=== PATIENT | female | born 1975 | race Caucasian/White ===

== ENCOUNTER 2024-01-07 20:56 | Inpatient (IN) | payer OTHER, SELFPAY ==
[2024-01-07 21:00] VITALS: BP 136/83; PULSE 74; RESP 18; TEMP 36.9; O2SAT 99; BMI 19.0
--- NOTE | 2024-01-07 21:14 | CT_ITS ---
Final Report Patient: HERB SALDIVAR Facility:?[facility] Patient ID:?[id number] Site Patient ID:?[id number]. Site :?[id number] Study:?CT Abdomen/Pelvis W/ ISOVUE 370-01/07/2024 10:27:52 PM Ordering Physician:FLORENCIO Final Report: INDICATION: Abdominal pain, distention. TECHNIQUE: CT abdomen and pelvis acquired with 62 cc Isovue 370 IV contrast. COMPARISON: None. FINDINGS: Limited evaluation secondary to paucity of mesenteric fat. Lower chest: Scattered atelectasis. Liver: Unremarkable. Normal in size and attenuation. No suspicious masses. Gallbladder and bile ducts: Unremarkable. No stones or inflammation. No biliary dilatation. Pancreas: Unremarkable. No mass or inflammation. Spleen: Unremarkable. Normal in size. No masses. Adrenal glands: Unremarkable. No nodules. Kidneys: Unremarkable. No suspicious masses, stones, or hydronephrosis. GI tract: Diffuse dilated loops of small bowel with wall thickening/hyperemia with few loops of collapsed right upper quadrant small bowel. Additional short segment small bowel intussusception in the right upper quadrant (series 2/image 68-75, series 4/image 29-41), possibly transition point. Vasculature: Abdominal aorta is normal in caliber. Mesenteric arteries are patent. Lymph nodes: No lymphadenopathy. Peritoneum/Abdominal Wall: Small volume ascites. No free intraperitoneal air. Pelvis: Unremarkable. Bones: Unremarkable for age. IMPRESSION: Diffuse dilated loops of small bowel with wall thickening/hyperemia and few loops of collapsed right upper quadrant small bowel. Additionally, there is a short segment small bowel intussusception in the right upper quadrant, suspicious transition point. Differential includes small bowel obstruction with reactive enteritis versus less likely enteritis with reactive ileus. Recommend surgical consultation. Additional diffuse mesenteric edema and small volume ascites, likely reactive. Case discussed with Dr. Peralta at 10:55 p.m. on 01/07/2024. Please note that all CT scans at this facility use dose modulation, iterative reconstruction, and/or weight-based dosing when appropriate to reduce radiation dose to as low as reasonably achievable. Dictated by Adonay Esposito MD @ 01/07/2024 11:00:50 PM (Electronic Signature)
--- NOTE | 2024-01-07 21:34 | ED_ITS ---
HPI - General Adult General Date Seen: 01/07/24 Chief complaint: Constipation Stated complaint: Vomiting, chest/stomach/back pain Time Seen by Provider: 01/07/24 21:13 Source: patient Mode of arrival: ambulatory Limitations: no limitations History of Present Illness HPI narrative: Patient is a 48-year-old woman who is generally healthy. She says that she does have some chronic problems with constipation, she does not take anything for it just does not have a bowel movement every day. She was in [place] over the weekend for a daughter's volleyball tournament, and she says she noted over the weekend that she did not poop at all. This is not entirely uncommon for her, but since yesterday she has developed pain in her abdomen fairly diffusely as well as radiating into her back. She feels her abdomen is quite distended and now she is having nausea and is unable to keep liquids down. She rates pain as moderate to severe in intensity. She has had a couple of small bowel movements today. She has not had fevers or chills. She has not had urinary symptoms. She has no history of prior abdominal surgeries. Related Data Home Medications Medication Instructions Recorded Confirmed multivitamin with iron 1 tab PO DAILY 01/07/24 01/08/24 Allergies Allergy/AdvReac Type Severity Reaction Status Date / Time No Known Drug Allergies Allergy Verified 01/07/24 21:04 Review of Systems Status of ROS: Reports: 10 or more systems reviewed and unremarkable except as noted in History and below PFSH PFS Social History What is your current living situation?: I presently have a place to live Problems where you live: no known problems Problems where you live details: N/A In the past 12 months, utilities in danger of being shut off: no In past 12 months, lack of transportation kept you from medical appts, meetings, work, or getting things needed for daily living: no In the past 12 mos, have been you worried that your food would run out before you had money to buy more?: never true In the past 12 mos, the food you bought just didn't last and you didn't have money to buy more?: never true Highest level of school completed/degree received: Bachelor's degree Smoking Status: Never smoker Do you use any of these nicotine containing products: None Second hand tobacco smoke exposure: No How often do you have a drink containing alcohol: never How often do you have six or more drinks on one occasion: Never AUDIT-C Alcohol total score: 0 Non-prescribed substance use: denies use Caffeine: Yes How often does anyone, including family, friends and others, physically hurt you : never How often does anyone, including family, friends and others, insult or talk down to you: never How often does anyone, including family, friends and others, threaten you with harm: never How often does anyone, including family, friends and others, scream or curse at you: never service: No Exam Narrative: Exam Narrative: Vital signs as noted above. In general, an alert, well-appearing patient. Head: Normocephalic, atraumatic. Eyes: Pupils are equal reactive. Extraocular movements are full. Conjunctivae are normal. ENT: Mucous membranes are moist. Neck: Supple without lymphadenopathy. Heart: Regular rate and rhythm. No murmur or rub. Lungs: Clear bilaterally. No increased work of breathing, crackles or wheezes. Abdomen: Mildly distended but soft. Diffuse tenderness to palpation with some voluntary guarding. Bowel sounds are quiet. Extremities: Well perfused. No edema. No calf tenderness. Pulses intact. Neurologic: Patient is alert and oriented to person and place. Speech is fluen t. Face is symmetric. Moves all extremities equally. Affect: Normal. Skin: Warm and dry. Well perfused. Const: Vital Signs, click to edit/add: Vital Signs - 24 hr 01/07/24 21:00 Temperature 98.4 F Pulse Rate [Pulse Oximeter] 74 Respiratory Rate 18 Blood Pressure [Ri ght Upper Arm] 136/83 Pulse Oximetry 99 Oxygen Delivery Me thod Room Air Documenting provider has reviewed patient's vital signs: yes Course Course ED Course: Diagnostic considerations include constipation, obstruction, volvulus, diverticulitis, pancreatitis, gastritis among others. Discussed with her that while symptoms certainly could be related to constipation, given degree of pain and tenderness I do think we should rule out other potential causes. Will establish an IV, give a L of saline as she says she has not been able to really keep anything down today. She declines need for anything for pain at the moment but would like something for nausea, Zofran 4 mg IV prescribed. Nausea improved with Zofran. She did ask for something ?easy on her stomach for pain. She has had problems with vomiting with narcotics in the past. I gave her 15 mg of Toradol. Her CT scan of the abdomen by my review showed the small bowel to be entirely dilated and fluid-filled. I did not see any free air, she has some free fluid on the periphery of the abdomen diffusely. I spoke with the radiologist, final read as follows:FINDINGS: Limited evaluation secondary to paucity of mesenteric fat. Lower chest: Scattered atelectasis. Liver: Unremarkable. Normal in size and attenuation. No suspicious masses. Gallbladder and bile ducts: Unremarkable. No stones or inflammation. No biliary dilatation. Pancreas: Unremarkable. No mass or inflammation. Spleen: Unremarkable. Normal in size. No masses. Adrenal glands: Unremarkable. No nodules. Kidneys: Unremarkable. No suspicious masses, stones, or hydronephrosis. GI tract: Diffuse dilated loops of small bowel with wall thickening/hyperemia with few loops of collapsed right upper quadrant small bowel. Additional short segment small bowel intussusception in the right upper quadrant (series 2/image [id number], series 4/image [id number]), possibly transition point. Vasculature: Abdominal aorta is normal in caliber. Mesenteric arteries are patent. Lymph nodes: No lymphadenopathy. Peritoneum/Abdominal Wall: Small volume ascites. No free intraperitoneal air. Pelvis: Unremarkable. Bones: Unremarkable for age. IMPRESSION: Diffuse dilated loops of small bowel with wall thickening/hyperemia and few loops of collapsed right upper quadrant small bowel. Additionally, there is a short segment small bowel intussusception in the right upper quadrant, suspicious transition point. Differential includes small bowel obstruction with reactive enteritis versus less likely enteritis with reactive ileus. Recommend surgical consultation. Additional diffuse mesenteric edema and small volume ascites, likely reactive. Labs are fairly reassuring. Her white count is normal, lactate is 1.1. Metabolic panel shows a sodium of 130 but is otherwise normal, total bilirubin is very minimally elevated 1.6 other LFTs are normal. CRP is less than 0.5. Urinalysis showed 1+ ketones, 0-2 red cells 0-2 white cells. test was negative. I reviewed her case with Dr. Horne, who is on-call for General surgery. She reviewed the CT scan as well. Her recommendation is that we treat this as a small bowel obstruction for now with NG tube, NPO status and IV fluids. She will assess her 1st thing tomorrow morning and failing to improve for worsening surgical exploration at that time. For now, exam remains the same, she is not showing any peritoneal signs, she is afebrile and hemodynamically stable. She is comfortable with the plan. Vital Signs Vital signs: Initial Vital Signs Temperature 98.4 F 01/07/24 21:00 Temperature Source Temporal Artery Scan 01/07/24 21:00 Pulse Rate 74 01/07/24 21:00 Respiratory Rate 18 01/07/24 21:00 Blood Pressure 136/83 01/07/24 21:00 Blood Pressure Mean 100 01/07/24 21:00 Blood Pressure Position Sitting 01/07/24 21:00 Pulse Oximetry 99 01/07/24 21:00 Oxygen Delivery Method Room Air 01/07/24 21:00 Vital Signs Temperature 98.4 F 01/07/24 21:00 Pulse Rate 74 01/07/24 21:00 Respiratory Rate 18 01/07/24 21:00 Blood Pressure 136/83 01/07/24 21:00 Pulse Oximetry 99 01/07/24 21:00 Oxygen Delivery Method Room Air 01/07/24 21:00 Temperature 98.3 F 01/09/24 15:00 Pulse Rate 76 01/09/24 15:00 Respiratory Rate 16 01/09/24 15:00 Blood Pressure 105/82 01/09/24 15:00 Pulse Oximetry 100 01/09/24 15:00 Oxygen Delivery Method Room Air 01/09/24 15:00 Medications Administered Medications: Generic Name Dose Route Start Last Admin Trade Name Jrq PRN Reason Stop Dose Admin Acetaminophen 650 mg 01/08/24 12:12 01/09/24 14:51 Acetaminophen 325 Mg Tablet PO 650 mg Q6H PRN Administration Lactated Ringer's 1,000 mls @ 100 mls/hr 01/07/24 23:57 01/09/24 16:02 Lactated Ringers 1000 Ml IV 100 mls/hr .Q10H LIYZ Administration Ketorolac Tromethamine 15 mg 01/08/24 12:12 01/09/24 16:01 Ketorolac 15 Mg/Ml Inj IVP 15 mg Q6H PRN Administration Ondansetron HCl 4 - 8 mg 01/07/24 23:57 01/08/24 08:19 Ondansetron 2 Mg/Ml Inj IVP 4 mg Q8H PRN Administration Nausea And Vomiting Phenol 1 spray 01/08/24 00:57 01/08/24 08:19 Phenol 1.4 % Throat [place] MUCOUS MEM 1 spray Q2H PRN Administration Discontinued Medications Generic Name Dose Route Start Last Admin Trade Name Freq PRN Reason Stop Dose Admin Acetaminophen 1,000 mg 01/08/24 08:49 01/08/24 09:35 Acetaminophen 500 Mg Tablet PO 01/08/24 08:50 1,000 mg ONCE ONE Administration Benzocaine 1 each 01/08/24 00:04 01/08/24 00:27 Benzocaine 20 % [place] NOSTRIL-B 01/08/24 00:05 1 each ONCE ONE Administration Cefazolin Sodium 1 gm 01/08/24 09:17 01/08/24 09:35 Cefazolin 1 Gm Inj IVP 01/08/24 09:18 1 gm ONCE ONE Administration Gabapentin 600 mg 01/08/24 08:49 01/08/24 09:35 Gabapentin 600 Mg Tablet PO 01/08/24 08:50 600 mg ONCE ONE Administration Hydroxyzine Pamoate 25 mg 01/08/24 09:21 01/08/24 09:35 Hydroxyzine Pamoate 25 Mg Capsule PO 01/08/24 09:22 25 mg ONCE ONE Administration Sodium Chloride 1,000 mls @ 1,000 mls/hr 01/07/24 21:15 01/08/24 00:18 0.9 % Sodium Chloride 1000 Ml IV 01/07/24 22:14 Infused .Q1H LIZY Infusion Lactated Ringer's 1,000 mls @ 100 mls/hr 01/08/24 09:25 01/09/24 16:34 Lactated Ringers 1000 Ml IV Not Given .Q10H LIZY Ketorolac Tromethamine 15 mg 01/07/24 22:01 01/07/24 22:08 Ketorolac 15 Mg/Ml Inj IVP 01/07/24 22:02 15 mg ONCE ONE Administration Ketorolac Tromethamine 15 mg 01/08/24 08:32 01/09/24 04:19 Ketorolac 15 Mg/Ml Inj IVP 15 mg Q6H PRN Administration Meperidine HCl 12.5 mg 01/08/24 09:21 01/08/24 11:49 Meperidine 25 Mg/Ml Inj IVP 12.5 mg ONCE PRN Administration Shivering Ondansetron HCl 4 mg 01/07/24 21:14 01/07/24 22:08 Ondansetron 2 Mg/Ml Inj IVP 01/07/24 21:15 4 mg ONCE ONE Administration Scopolamine 1 patch 01/08/24 08:49 01/08/24 09:36 Scopolamine 1 Mg/3 Day Patch TRANSDERMA 01/08/24 08:50 1 patch ONCE ONE Administration Medical Decision Making Lab Data Labs: Lab Results 01/07/24 01/07/24 01/07/24 Range/Units 21:57 22:00 22:00 WBC 9.11 (4.50-11.00) K/uL RBC 4.37 (4.00-5.20) m/uL Hgb 14.5 (12.0-16.0) gm/dL Hct 42.7 (33.0-51.0) % MCV 98 (80-100) fL MCH 33 (26-34) pg MCHC 34 (32-36) gm/dL RDW Coeff of Jenniffer 11.8 (11.5-15.5) % Plt Count 246 (140-440) K/uL Neut % (Auto) 85.2 H (42.0-72.0) % Lymph % (Auto) 8.3 L (20-44) % [place] % (Auto) 5.5 (0.0-11.0) % Eos % (Auto) 0.1 (0.0-7.0) % Baso % (Auto) 0.1 (0.0-3.0) % Neut # (Auto) 7.80 H (1.7-7.0) K/uL Lymph # (Auto) 0.80 L (0.90-2.90) K/uL [place] # (Auto) 0.50 (0.00-0.90) K/UL Eos # (Auto) 0.01 (0.00-0.50) K/uL Baso # (Auto) 0.01 (0.00-0.30) K/uL Abs Immat Gran (auto) 0.07 (0.00-0.30) K/uL Imm/Tot Granulo (auto) 0.8 % Sodium 130 L (135-149) mmol/L Potassium 4.2 (3.6-5.1) mmol/L Chloride 96 (96-114) mmol/L Carbon Dioxide 22 (20-32) mmol/L Anion Gap 12 (7-15) mEq/L BUN 14 (5-24) mg/dL Creatinine 0.7 (0.5-1.5) mg/dL Estimated Creat Clear 88.93 Estimated GFR 107 ml/min Glucose 110 (60-115) mg/dL Lactate 1.1 (0.5-1.9) mmol/L Calcium 9.6 (8.4-10.6) mg/dL Total Bilirubin 1.6 H (0.1-1.5) mg/dL Direct Bilirubin 0.3 (0.0-0.5) mg/dL AST 32 (12-35) U/L ALT 17 (4-35) U/L Alkaline Phosphatase 64 (40-150) U/L C-Reactive Protein < 0.5 L (0.5-1.0) mg/dL Total Protein 8.9 H (6.0-8.3) g/dL Albumin 5.2 H (3.3-5.0) g/dL Lipase 41 (23-300) U/L Urine Color Yellow Cancelled (Yellow) Urine Appearance Clear (Clear) Urine pH (5.0-8.5) Ur Specific [place] (1.000-1.030) Urine Protein (Negative) Urine Glucose (UA) (Negative) Urine Ketones (Negative) Urine Blood (Negative) Urine Nitrite (Negative) Urine Bilirubin (Negative) Urine Urobilinogen (0.2-1.0) Ur Leukocyte Esterase (Negative) Urine RBC (0-2) Urine WBC (0-5) Urine WBC Clumps Ur Squamous Epith Cells (None-Few) James Biurate Crystals Calcium Carbonate Cryst Calcium Phosphate Cryst Calcium Oxalate Crystal Cystine Crystals Uric Acid Crystals Triple Phos Crystals Sulfur Crystals Cholesterol Crystals Tyrosine Crystals Hippuric Acid Crystals Amorphous Sediment (None) Other Sediment Urine Bacteria (None) Fatty Casts Hyaline Casts Fine Granular Casts Coarse Granular Casts Waxy Casts RBC Casts WBC Casts Other Casts Urine Starch Urine Mucus Urine Trichomonas Urine Yeast Urine HCG, Qual (Negative) 01/07/24 01/07/24 01/07/24 Range/Units 22:00 22:00 22:00 WBC (4.50-11.00) K/uL RBC (4.00-5.20) m/uL Hgb (12.0-16.0) gm/dL Hct (33.0-51.0) % MCV (80-100) fL MCH (26-34) pg MCHC (32-36) gm/dL RDW Coeff of Jenniffer (11.5-15.5) % Plt Count (140-440) K/uL Neut % (Auto) (42.0-72.0) % Lymph % (Auto) (20-44) % [place] % (Auto) (0.0-11.0) % Eos % (Auto) (0.0-7.0) % Baso % (Auto) (0.0-3.0) % Neut # (Auto) (1.7-7.0) K/uL Lymph # (Auto) (0.90-2.90) K/uL [place] # (Auto) (0.00-0.90) K/UL Eos # (Auto) (0.00-0.50) K/uL Baso # (Auto) (0.00-0.30) K/uL Abs Immat Gran (auto) (0.00-0.30) K/uL Imm/Tot Granulo (auto) % Sodium (135-149) mmol/L Potassium (3.6-5.1) mmol/L Chloride (96-114) mmol/L Carbon Dioxide (20-32) mmol/L Anion Gap (7-15) mEq/L BUN (5-24) mg/dL Creatinine (0.5-1.5) mg/dL Estimated Creat Clear Estimated GFR ml/min Glucose (60-115) mg/dL Lactate (0.5-1.9) mmol/L Calcium (8.4-10.6) mg/dL Total Bilirubin (0.1-1.5) mg/dL Direct Bilirubin (0.0-0.5) mg/dL AST (12-35) U/L ALT (4-35) U/L Alkaline Phosphatase (40-150) U/L C-Reactive Protein (0.5-1.0) mg/dL Total Protein (6.0-8.3) g/dL Albumin (3.3-5.0) g/dL Lipase (23-300) U/L Urine Color (Yellow) Urine Appearance Cancelled (Clear) Urine pH 6.0 Cancelled (5.0-8.5) Ur Specific [place] >= 1.030 Cancelled (1.000-1.030) Urine Protein Negative (Negative) Urine Glucose (UA) (Negative) Urine Ketones (Negative) Urine Blood (Negative) Urine Nitrite (Negative) Urine Bilirubin (Negative) Urine Urobilinogen (0.2-1.0) Ur Leukocyte Esterase (Negative) Urine RBC (0-2) Urine WBC (0-5) Urine WBC Clumps Ur Squamous Epith Cells (None-Few) James Biurate Crystals Calcium Carbonate Cryst Calcium Phosphate Cryst Calcium Oxalate Crystal Cystine Crystals Uric Acid Crystals Triple Phos Crystals Sulfur Crystals Cholesterol Crystals Tyrosine Crystals Hippuric Acid Crystals Amorphous Sediment (None) Other Sediment Urine Bacteria (None) Fatty Casts Hyaline Casts Fine Granular Casts Coarse Granular Casts Waxy Casts RBC Casts WBC Casts Other Casts Urine Starch Urine Mucus Urine Trichomonas Urine Yeast Urine HCG, Qual (Negative) 01/07/24 01/07/24 01/07/24 Range/Units 22:00 22:00 22:00 WBC (4.50-11.00) K/uL RBC (4.00-5.20) m/uL Hgb (12.0-16.0) gm/dL Hct (33.0-51.0) % MCV (80-100) fL MCH (26-34) pg MCHC (32-36) gm/dL RDW Coeff of Jenniffer (11.5-15.5) % Plt Count (140-440) K/uL Neut % (Auto) (42.0-72.0) % Lymph % (Auto) (20-44) % [place] % (Auto) (0.0-11.0) % Eos % (Auto) (0.0-7.0) % Baso % (Auto) (0.0-3.0) % Neut # (Auto) (1.7-7.0) K/uL Lymph # (Auto) (0.90-2.90) K/uL [place] # (Auto) (0.00-0.90) K/UL Eos # (Auto) (0.00-0.50) K/uL Baso # (Auto) (0.00-0.30) K/uL Abs Immat Gran (auto) (0.00-0.30) K/uL Imm/Tot Granulo (auto) % Sodium (135-149) mmol/L Potassium (3.6-5.1) mmol/L Chloride (96-114) mmol/L Carbon Dioxide (20-32) mmol/L Anion Gap (7-15) mEq/L BUN (5-24) mg/dL Creatinine (0.5-1.5) mg/dL Estimated Creat Clear Estimated GFR ml/min Glucose (60-115) mg/dL Lactate (0.5-1.9) mmol/L Calcium (8.4-10.6) mg/dL Total Bilirubin (0.1-1.5) mg/dL Direct Bilirubin (0.0-0.5) mg/dL AST (12-35) U/L ALT (4-35) U/L Alkaline Phosphatase (40-150) U/L C-Reactive Protein (0.5-1.0) mg/dL Total Protein (6.0-8.3) g/dL Albumin (3.3-5.0) g/dL Lipase (23-300) U/L Urine Color (Yellow) Urine Appearance (Clear) Urine pH (5.0-8.5) Ur Specific [place] (1.000-1.030) Urine Protein Cancelled (Negative) Urine Glucose (UA) Negative Cancelled (Negative) Urine Ketones 1+ A Cancelled (Negative) Urine Blood Trace-intact A (Negative) Urine Nitrite (Negative) Urine Bilirubin (Negative) Urine Urobilinogen (0.2-1.0) Ur Leukocyte Esterase (Negative) Urine RBC (0-2) Urine WBC (0-5) Urine WBC Clumps Ur Squamous Epith Cells (None-Few) James Biurate Crystals Calcium Carbonate Cryst Calcium Phosphate Cryst Calcium Oxalate Crystal Cystine Crystals Uric Acid Crystals Triple Phos Crystals Sulfur Crystals Cholesterol Crystals Tyrosine Crystals Hippuric Acid Crystals Amorphous Sediment (None) Other Sediment Urine Bacteria (None) Fatty Casts Hyaline Casts Fine Granular Casts Coarse Granular Casts Waxy Casts RBC Casts WBC Casts Other Casts Urine Starch Urine Mucus Urine Trichomonas Urine Yeast Urine HCG, Qual (Negative) 01/07/24 01/07/24 01/07/24 Range/Units 22:00 22:00 22:00 WBC (4.50-11.00) K/uL RBC (4.00-5.20) m/uL Hgb (12.0-16.0) gm/dL Hct (33.0-51.0) % MCV (80-100) fL MCH (26-34) pg MCHC (32-36) gm/dL RDW Coeff of Jenniffer (11.5-15.5) % Plt Count (140-440) K/uL Neut % (Auto) (42.0-72.0) % Lymph % (Auto) (20-44) % [place] % (Auto) (0.0-11.0) % Eos % (Auto) (0.0-7.0) % Baso % (Auto) (0.0-3.0) % Neut # (Auto) (1.7-7.0) K/uL Lymph # (Auto) (0.90-2.90) K/uL [place] # (Auto) (0.00-0.90) K/UL Eos # (Auto) (0.00-0.50) K/uL Baso # (Auto) (0.00-0.30) K/uL Abs Immat Gran (auto) (0.00-0.30) K/uL Imm/Tot Granulo (auto) % Sodium (135-149) mmol/L Potassium (3.6-5.1) mmol/L Chloride (96-114) mmol/L Carbon Dioxide (20-32) mmol/L Anion Gap (7-15) mEq/L BUN (5-24) mg/dL Creatinine (0.5-1.5) mg/dL Estimated Creat Clear Estimated GFR ml/min Glucose (60-115) mg/dL Lactate (0.5-1.9) mmol/L Calcium (8.4-10.6) mg/dL Total Bilirubin (0.1-1.5) mg/dL Direct Bilirubin (0.0-0.5) mg/dL AST (12-35) U/L ALT (4-35) U/L Alkaline Phosphatase (40-150) U/L C-Reactive Protein (0.5-1.0) mg/dL Total Protein (6.0-8.3) g/dL Albumin (3.3-5.0) g/dL Lipase (23-300) U/L Urine Color (Yellow) Urine Appearance (Clear) Urine pH (5.0-8.5) Ur Specific [place] (1.000-1.030) Urine Protein (Negative) Urine Glucose (UA) (Negative) Urine Ketones (Negative) Urine Blood Cancelled (Negative) Urine Nitrite Negative Cancelled (Negative) Urine Bilirubin Negative Cancelled (Negative) Urine Urobilinogen 0.2 (0.2-1.0) Ur Leukocyte Esterase (Negative) Urine RBC (0-2) Urine WBC (0-5) Urine WBC Clumps Ur Squamous Epith Cells (None-Few) [place] Biurate Crystals Calcium Carbonate Cryst Calcium Phosphate Cryst Calcium Oxalate Crystal Cystine Crystals Uric Acid Crystals Triple Phos Crystals Sulfur Crystals Cholesterol Crystals Tyrosine Crystals Hippuric Acid Crystals Amorphous Sediment (None) Other Sediment Urine Bacteria (None) Fatty Casts Hyaline Casts Fine Granular Casts Coarse Granular Casts Waxy Casts RBC Casts WBC Casts Other Casts Urine Starch Urine Mucus Urine Trichomonas Urine Yeast Urine HCG, Qual (Negative) 01/07/24 01/07/24 01/07/24 Range/Units 22:00 22:00 22:00 WBC (4.50-11.00) K/uL RBC (4.00-5.20) m/uL Hgb (12.0-16.0) gm/dL Hct (33.0-51.0) % MCV (80-100) fL MCH (26-34) pg MCHC (32-36) gm/dL RDW Coeff of Jenniffer (11.5-15.5) % Plt Count (140-440) K/uL Neut % (Auto) (42.0-72.0) % Lymph % (Auto) (20-44) % [place] % (Auto) (0.0-11.0) % Eos % (Auto) (0.0-7.0) % Baso % (Auto) (0.0-3.0) % Neut # (Auto) (1.7-7.0) K/uL Lymph # (Auto) (0.90-2.90) K/uL [place] # (Auto) (0.00-0.90) K/UL Eos # (Auto) (0.00-0.50) K/uL Baso # (Auto) (0.00-0.30) K/uL Abs Immat Gran (auto) (0.00-0.30) K/uL Imm/Tot Granulo (auto) % Sodium (135-149) mmol/L Potassium (3.6-5.1) mmol/L Chloride (96-114) mmol/L Carbon Dioxide (20-32) mmol/L Anion Gap (7-15) mEq/L BUN (5-24) mg/dL Creatinine (0.5-1.5) mg/dL Estimated Creat Clear Estimated GFR ml/min Glucose (60-115) mg/dL Lactate (0.5-1.9) mmol/L Calcium (8.4-10.6) mg/dL Total Bilirubin (0.1-1.5) mg/dL Direct Bilirubin (0.0-0.5) mg/dL AST (12-35) U/L ALT (4-35) U/L Alkaline Phosphatase (40-150) U/L C-Reactive Protein (0.5-1.0) mg/dL Total Protein (6.0-8.3) g/dL Albumin (3.3-5.0) g/dL Lipase (23-300) U/L Urine Color (Yellow) Urine Appearance (Clear) Urine pH (5.0-8.5) Ur Specific [place] (1.000-1.030) Urine Protein (Negative) Urine Glucose (UA) (Negative) Urine Ketones (Negative) Urine Blood (Negative) Urine Nitrite (Negative) Urine Bilirubin (Negative) Urine Urobilinogen Cancelled (0.2-1.0) Ur Leukocyte Esterase Negative Cancelled (Negative) Urine RBC 0-2 Cancelled (0-2) Urine WBC 0-2 (0-5) Urine WBC Clumps Ur Squamous Epith Cells (None-Few) [place] Biurate Crystals Calcium Carbonate Cryst Calcium Phosphate Cryst Calcium Oxalate Crystal Cystine Crystals Uric Acid Crystals Triple Phos Crystals Sulfur Crystals Cholesterol Crystals Tyrosine Crystals Hippuric Acid Crystals Amorphous Sediment (None) Other Sediment Urine Bacteria (None) Fatty Casts Hyaline Casts Fine Granular Casts Coarse Granular Casts Waxy Casts RBC Casts WBC Casts Other Casts Urine Starch Urine Mucus Urine Trichomonas Urine Yeast Urine HCG, Qual (Negative) 01/07/24 01/07/24 01/07/24 Range/Units 22:00 22:00 22:00 WBC (4.50-11.00) K/uL RBC (4.00-5.20) m/uL Hgb (12.0-16.0) gm/dL Hct (33.0-51.0) % MCV (80-100) fL MCH (26-34) pg MCHC (32-36) gm/dL RDW Coeff of Jenniffer (11.5-15.5) % Plt Count (140-440) K/uL Neut % (Auto) (42.0-72.0) % Lymph % (Auto) (20-44) % [place] % (Auto) (0.0-11.0) % Eos % (Auto) (0.0-7.0) % Baso % (Auto) (0.0-3.0) % Neut # (Auto) (1.7-7.0) K/uL Lymph # (Auto) (0.90-2.90) K/uL [place] # (Auto) (0.00-0.90) K/UL Eos # (Auto) (0.00-0.50) K/uL Baso # (Auto) (0.00-0.30) K/uL Abs Immat Gran (auto) (0.00-0.30) K/uL Imm/Tot Granulo (auto) % Sodium (135-149) mmol/L Potassium (3.6-5.1) mmol/L Chloride (96-114) mmol/L Carbon Dioxide (20-32) mmol/L Anion Gap (7-15) mEq/L BUN (5-24) mg/dL Creatinine (0.5-1.5) mg/dL Estimated Creat Clear Estimated GFR ml/min Glucose (60-115) mg/dL Lactate (0.5-1.9) mmol/L Calcium (8.4-10.6) mg/dL Total Bilirubin (0.1-1.5) mg/dL Direct Bilirubin (0.0-0.5) mg/dL AST (12-35) U/L ALT (4-35) U/L Alkaline Phosphatase (40-150) U/L C-Reactive Protein (0.5-1.0) mg/dL Total Protein (6.0-8.3) g/dL Albumin (3.3-5.0) g/dL Lipase (23-300) U/L Urine Color (Yellow) Urine Appearance (Clear) Urine pH (5.0-8.5) Ur Specific [place] (1.000-1.030) Urine Protein (Negative) Urine Glucose (UA) (Negative) Urine Ketones (Negative) Urine Blood (Negative) Urine Nitrite (Negative) Urine Bilirubin (Negative) Urine Urobilinogen (0.2-1.0) Ur Leukocyte Esterase (Negative) Urine RBC (0-2) Urine WBC Cancelled (0-5) Urine WBC Clumps Cancelled Ur Squamous Epith Cells Few Cancelled (None-Few) [place] Biurate Crystals Cancelled Calcium Carbonate Cryst Cancelled Calcium Phosphate Cryst Cancelled Calcium Oxalate Crystal Cancelled Cystine Crystals Cancelled Uric Acid Crystals Cancelled Triple Phos Crystals Cancelled Sulfur Crystals Cancelled Cholesterol Crystals Cancelled Tyrosine Crystals Cancelled Hippuric Acid Crystals Cancelled Amorphous Sediment Few A Cancelled (None) Other Sediment Cancelled Urine Bacteria Few A (None) Fatty Casts Hyaline Casts Fine Granular Casts Coarse Granular Casts Waxy Casts RBC Casts WBC Casts Other Casts Urine Starch Urine Mucus Urine Trichomonas Urine Yeast Urine HCG, Qual (Negative) 01/07/24 01/08/24 Range/Units 22:00 06:14 WBC 6.07 (4.50-11.00) K/uL RBC 3.49 L (4.00-5.20) m/uL Hgb 11.6 L (12.0-16.0) gm/dL Hct 33.9 (33.0-51.0) % MCV 97 (80-100) fL MCH 33 (26-34) pg MCHC 34 (32-36) gm/dL RDW Coeff of Jenniffer 11.8 (11.5-15.5) % Plt Count 201 (140-440) K/uL Neut % (Auto) 71.3 (42.0-72.0) % Lymph % (Auto) 19.8 L (20-44) % [place] % (Auto) 7.6 (0.0-11.0) % Eos % (Auto) 1.0 (0.0-7.0) % Baso % (Auto) 0.3 (0.0-3.0) % Neut # (Auto) 4.33 (1.7-7.0) K/uL Lymph # (Auto) 1.20 (0.90-2.90) K/uL [place] # (Auto) 0.50 (0.00-0.90) K/UL Eos # (Auto) 0.06 (0.00-0.50) K/uL Baso # (Auto) 0.02 (0.00-0.30) K/uL Abs Immat Gran (auto) 0.00 (0.00-0.30) K/uL Imm/Tot Granulo (auto) 0.0 % Sodium 133 L (135-149) mmol/L Potassium 3.6 (3.6-5.1) mmol/L Chloride 102 (96-114) mmol/L Carbon Dioxide 25 (20-32) mmol/L Anion Gap 6 L (7-15) mEq/L BUN 12 (5-24) mg/dL Creatinine 0.7 (0.5-1.5) mg/dL Estimated Creat Clear 89.29 Estimated GFR 107 ml/min Glucose 92 (60-115) mg/dL Lactate (0.5-1.9) mmol/L Calcium 8.7 (8.4-10.6) mg/dL Total Bilirubin (0.1-1.5) mg/dL Direct Bilirubin (0.0-0.5) mg/dL AST (12-35) U/L ALT (4-35) U/L Alkaline Phosphatase (40-150) U/L C-Reactive Protein (0.5-1.0) mg/dL Total Protein (6.0-8.3) g/dL Albumin (3.3-5.0) g/dL Lipase (23-300) U/L Urine Color (Yellow) Urine Appearance (Clear) Urine pH (5.0-8.5) Ur Specific [place] (1.000-1.030) Urine Protein (Negative) Urine Glucose (UA) (Negative) Urine Ketones (Negative) Urine Blood (Negative) Urine Nitrite (Negative) Urine Bilirubin (Negative) Urine Urobilinogen (0.2-1.0) Ur Leukocyte Esterase (Negative) Urine RBC (0-2) Urine WBC (0-5) Urine WBC Clumps Ur Squamous Epith Cells (None-Few) James Biurate Crystals Calcium Carbonate Cryst Calcium Phosphate Cryst Calcium Oxalate Crystal Cystine Crystals Uric Acid Crystals Triple Phos Crystals Sulfur Crystals Cholesterol Crystals Tyrosine Crystals Hippuric Acid Crystals Amorphous Sediment (None) Other Sediment Urine Bacteria Cancelled (None) Fatty Casts Cancelled Hyaline Casts Cancelled Fine Granular Casts Cancelled Coarse Granular Casts Cancelled Waxy Casts Cancelled RBC Casts Cancelled WBC Casts Cancelled Other Casts Cancelled Urine Starch Cancelled Urine Mucus Cancelled Urine Trichomonas Cancelled Urine Yeast Cancelled Urine HCG, Qual Negative (Negative) Discharge Plan Discharge Patient Disposition: Admitted As Observation
[2024-01-07] MEDS: 0.9 % SODIUM CHLORIDE 1000 ml 1,000 ML IV (21:57)
[2024-01-07] MEDS: KETOROLAC 15 MG/ML inj IVP (22:08)
[2024-01-07] MEDS: ONDANSETRON 2 MG/ML inj 4 MG IVP (22:08)
[2024-01-07 22:25] LABS: Appearance Urine Clear (Clear); Bilirubin Urine Negative (Negative); Blood Urine Trace-intact (Negative); Color Urine Yellow (Yellow); Glucose Urine Negative (Negative); Ketones Urine 1+ (Negative); Leukocyte Esterase Urine Negative (Negative); Nitrite Urine Negative (Negative); Protein Urine Negative (Negative); Specific Gravity Urine >= 1.030 (1.000-1.030); Urobilinogen Urine 0.2 (0.2-1.0)
[2024-01-07 22:26] LABS: Lactate* 1.1 mmol/L (0.5-1.9)
[2024-01-07 22:43] LABS: Albumin* 5.2 g/dL (3.3-5.0); Chloride* 96 mmol/L (96-114)
[2024-01-07 22:44] LABS: Potassium* 4.2 mmol/L (3.6-5.1); Sodium* 130 mmol/L (135-149)
[2024-01-07 22:46] LABS: Creatinine* 0.7 mg/dL (0.5-1.5); Est. Creatinine Clearance* 88.93; Estimated Glomerular Filt Rate 107 ml/min
[2024-01-07 22:47] LABS: Alanine Aminotransferase* 17 U/L (4-35); Alkaline Phosphatase* 64 U/L (40-150); Anion Gap 12 mEq/L (7-15); Aspartate Amino Transferase* 32 U/L (12-35); Bilirubin Direct* 0.3 mg/dL (0.0-0.5); Bilirubin Total* 1.6 mg/dL (0.1-1.5); Blood Urea Nitrogen* 14 mg/dL (5-24); Calcium* 9.6 mg/dL (8.4-10.6); Carbon Dioxide* 22 mmol/L (20-32); Glucose* 110 mg/dL (60-115); Lipase* 41 U/L (23-300); Total Protein* 8.9 g/dL (6.0-8.3)
[2024-01-07 22:48] LABS: RBC Urine 0-2 (0-2); WBC Urine 0-2 (0-5)
[2024-01-07 22:49] LABS: Amorphous Sediment Urine Few; Bacteria Urine Few; Squamous Epithelial Cell Urine Few (None-Few); Ur HCG Qualitative* Negative (Negative)
[2024-01-07 22:57] LABS: Basophils Absolute Auto 0.01 K/uL (0.00-0.30); Basophils Percent Auto 0.1 % (0.0-3.0); C Reactive Protein* < 0.5 mg/dL (0.5-1.0); Eosinophils Absolute Auto 0.01 K/uL (0.00-0.50); Eosinophils Percent Auto 0.1 % (0.0-7.0); Hematocrit 42.7 % (33.0-51.0); Hemoglobin* 14.5 gm/dL (12.0-16.0); Immature Granulocytes Abs Auto 0.07 K/uL (0.00-0.30); Immature Granulocytes Pct Auto 0.8 %; Lymphocytes Percent Auto 8.3 % (20-44); Mean Corpuscular HGB Conc 34 gm/dL (32-36); Mean Corpuscular Hemoglobin 33 pg (26-34); Mean Corpuscular Volume 98 fL (80-100); Monocytes Percent Auto 5.5 % (0.0-11.0); Neutrophils Percent Auto 85.2 % (42.0-72.0); Platelet Count* 246 K/uL (140-440); RDW Coefficient of Variation % 11.8 % (11.5-15.5); Red Blood Count 4.37 m/uL (4.00-5.20); White Blood Count* 9.11 K/uL (4.50-11.00)
[2024-01-07 22:58] LABS: Slide Review Reflex No
[2024-01-08] VITALS (22 sets, daily range): BP systolic 92–139; BP diastolic 49–90; PULSE 63–114; RESP 14–18; TEMP 36.2–37.6; O2SAT 96–100; BMI 19.1
--- NOTE | 2024-01-08 00:08 | XR_ITS ---
Final Report Patient: HERB SALDIVAR Facility:?[facility] Patient ID:?[id number] Site Patient ID:?[id number]. Site :?[id number] Study:?XRay Abdomen 1V-01/08/2024 12:32:47 AM Ordering Physician:FLORENCIO Final Report: Indication: NG tube placement Technique: Single view of the abdomen Comparison: Prior day CT abdomen and pelvis Findings: Dilated loops of small bowel again noted, not well evaluated on this examination. Enteric tube terminates in the left lower quadrant, likely tenting the stomach, side hole distal to the GE junction. Impression: Enteric tube terminates in the left lower quadrant, likely tenting the stomach, side hole distal to the GE junction. Dictated by Carter Mahajan MD @ 01/08/2024 12:55:16 AM (Electronic Signature)
--- NOTE | 2024-01-08 00:11 | ED.NURSE ---
NG tube placed at 0000 on 01/08/24. Tube inserted into the left nare, 60cm at the nose. Secured with NG securement device. 750 mL of green bile returned from NG on low intermittent suction. pH was 3 on the gastro pH card. Xray pending for verification. SHIRAZ Shine CB assisted with insertion.
[2024-01-08] MEDS: BENZOCAINE 20 % SPRAY 1 EACH NOSTRIL-B (00:27)
[2024-01-08] MEDS: LACTATED RINGERS 1000 ML 1,000 ML 100 ML IV ×2 (00:57→09:40)
[2024-01-08] MEDS: phenoL 1.4 % THROAT SPRAY 1 SPRAY MUCOUS MEM ×2 (02:39→08:19)
[2024-01-08 06:43] LABS: Basophils Absolute Auto 0.02 K/uL (0.00-0.30); Basophils Percent Auto 0.3 % (0.0-3.0); Eosinophils Absolute Auto 0.06 K/uL (0.00-0.50); Hematocrit 33.9 % (33.0-51.0); Hemoglobin* 11.6 gm/dL (12.0-16.0); Lymphocytes Percent Auto 19.8 % (20-44); Mean Corpuscular HGB Conc 34 gm/dL (32-36); Mean Corpuscular Hemoglobin 33 pg (26-34); Mean Corpuscular Volume 97 fL (80-100); Monocytes Percent Auto 7.6 % (0.0-11.0); Neutrophils Absolute Auto 4.33 K/uL (1.7-7.0); Neutrophils Percent Auto 71.3 % (42.0-72.0); Platelet Count* 201 K/uL (140-440); RDW Coefficient of Variation % 11.8 % (11.5-15.5); Red Blood Count 3.49 m/uL (4.00-5.20); Slide Review Reflex No; White Blood Count* 6.07 K/uL (4.50-11.00)
--- NOTE | 2024-01-08 06:48 | PC.NURSE ---
Addendum entered by Mary Khan RN 01/08/24 07:29: To clarify NG output- no output since output noted by ED nurse which has been documented. Original Note: End of shift note: Pt arrived to med/surg unit from ED at 0035. She is noted to be alert & oriented x 4 and able to make needs known. She transfers/ambulates independently in room and has been continent of bladder. Pt reports last BM of 01/07/24 of several hard pieces of stool. Abdominal distention and tenderness noted upon assessment and palpation. Pt states abdomen has tenderness throughout and comparable bilaterally. Pt reports abdominal pain has decreased since placement of NG tube and PRN pain medication given in ED. Anti-nausea aromatherapy patch provided upon admission to med/surg unit. Pt was given PRN Zofran in ED and has had no vomiting noted since admission to med/surg. Pt has been NPO since arrival to med/surg and is aware that plan is for Dr. Horne to assess her this morning for surgical consult. Abdominal pain has been 2/10 per pt report and she states this is tolerable. She is aware she has PRN pain medication available. NG tube currently in place attached to LIS though has had no output since being placed in ED earlier this shift. LR running at 100 mL/hr per current order in place.
[2024-01-08 06:59] LABS: Chloride* 102 mmol/L (96-114); Potassium* 3.6 mmol/L (3.6-5.1); Sodium* 133 mmol/L (135-149)
[2024-01-08 07:02] LABS: Anion Gap 6 mEq/L (7-15); Blood Urea Nitrogen* 12 mg/dL (5-24); Carbon Dioxide* 25 mmol/L (20-32); Creatinine* 0.7 mg/dL (0.5-1.5); Est. Creatinine Clearance* 89.29; Estimated Glomerular Filt Rate 107 ml/min; Glucose* 92 mg/dL (60-115)
[2024-01-08 07:03] LABS: Calcium* 8.7 mg/dL (8.4-10.6)
[2024-01-08] MEDS: ONDANSETRON 2 MG/ML inj IVP (08:19)
--- NOTE | 2024-01-08 09:21 | P.GSHP_ITS ---
History of Present Illness History of Present Illness Date Seen: 01/15/24 Chief complaint: Vomiting, chest/stomach/back pain Narrative: Sam Mullen is a 48 year old female who presented to the emergency department with abdominal pain, nausea and vomiting. She does have a history of co nstipation, but has never had abdominal surgery before. Over the weekend she was in [facility] for her daughter's volleyball tournament. She did not have a bowel movement while traveling, which is not unusual for her, but she started to develop abdominal pain in her lower abdomen that then spread throughout. The pain continued to increase in severity and she describes it as a ?severe cramping sensation that would come in waves. She has never had pain like this before. She does feel very bloated. Also reporting no appetite over the last few days, nausea and vomiting. She did have a couple of small stools yesterday and thinks she might have passed some gas. No passage of gas or stools today. She has been burping more frequently in overall feels ?very full?. She is otherwise healthy. She works out every day and is very active. Review of Systems Status of ROS: Reports: 10 or more systems reviewed and unremarkable except as noted in History and below [facility] Social History What is your current living situation?: I presently have a place to live Problems where you live: no known problems Problems where you live details: N/A In the past 12 months, utilities in danger of being shut off: no In past 12 months, lack of transportation kept you from medical appts, meetings, work, or getting things needed for daily living: no In the past 12 mos, have been you worried that your food would run out before you had money to buy more?: never true In the past 12 mos, the food you bought just didn't last and you didn't have money to buy more?: never true Highest level of school completed/degree received: Bachelor's degree Smoking Status: Never smoker Do you use any of these nicotine containing products: None Second hand tobacco smoke exposure: No How often do you have a drink containing alcohol: never How often do you have six or more drinks on one occasion: Never AUDIT-C Alcohol total score: 0 Non-prescribed substance use: denies use Caffeine: Yes How often does anyone, including family, friends and others, physically hurt you : never How often does anyone, including family, friends and others, insult or talk down to you: never How often does anyone, including family, friends and others, threaten you with harm: never How often does anyone, including family, friends and others, scream or curse at you: never service: No Meds Home Medications and Allergies Home Medications Medication Instructions Recorded Confirmed Type multivitamin with iron .ROUTE 01/07/24 History Allergies Allergy/AdvReac Type Severity Reaction Status Date / Time No Known Drug Allergies Allergy Verified 01/07/24 21:04 Exam Narrative: Exam Narrative: General: Alert and oriented, nontoxic in appearance Respiratory: Equal breath rise bilaterally, maintained on room air CV: Well perfused, regular rhythm and rate Abdomen: Moderate distention, tympanic with some tenderness to palpation no guarding or rebound. Const: Vital Signs, click to edit/add: Vital Signs - 24 hr 01/07/24 21:00 01/08/24 00:42 01/08/24 00:42 Temperature 98.4 F 98.4 F Pulse Rate [Pulse Oximeter] 74 Pulse Rate [Right Pulse Oximeter] 63 Respiratory Rate 18 16 16 Blood Pressure [Ri ght Arm] 113/72 Blood Pressure [Ri ght Upper Arm] 136/83 Pulse Oximetry 99 100 100 Oxygen Delivery Me thod Room Air Room Air Room Air 01/08/24 00:42 01/08/24 02:49 Temperature 98.4 F 99.1 F Pulse Rate [Pulse Oximeter] Pulse Rate [Right Pulse Oximeter] 63 81 Respiratory Rate 16 16 Blood Pressure [Ri ght Arm] 113/72 108/68 Blood Pressure [Ri ght Upper Arm] Pulse Oximetry 100 96 Oxygen Delivery Me thod Room Air Room Air Results Results Labs: No leukocytosis, lactate within normal limits. All other labs reviewed. Elevated indirect bilirubin, mild hyponatremia. Abdomen CT scan report/results: report reviewed and image reviewed Progress Note:A&P Assessment and plan (1) Intussusception intestine: Status: Acute Assessment and Plan: Patient is an otherwise healthy 48-year-old female who presented with abdominal pain, nausea and vomiting. Workup was obtained with CT imaging demonstrating dilated small bowel with transition in the right upper quadrant and segment of small bowel intussusception. Given patient's history of no previous abdominal surgeries there is a concern for underlying mass as etiology. Scar tissue and hernia remain in the differential, but are less likely. At this time recommend surgical intervention for further evaluation with possible small-bowel resect ion. Risks and benefits of surgery were discussed at length with the patient. Risks included, but were not limited to: Bleeding, infection, risk of damage to surrounding structures and possible need for additional procedures. All questions concerns were addressed with patient agreeing to proceed. - NPO, IVF - NGT LIS - dilaudid for pain PRN. Use narcotics sparingly - zofran PRN nausea - SCDs for DVT ppx, holding on lovenox at this time OR this morning for exploratory laparotomy, possible small-bowel resection.
[2024-01-08] MEDS: CEFAZOLIN 1 GM inj IVP (09:35)
[2024-01-08] MEDS: GABAPENTIN 600 MG TABLET PO (09:35)
[2024-01-08] MEDS: hydrOXYzine pamoate 25 MG CAPSULE PO (09:35)
[2024-01-08] MEDS: ACETAMINOPHEN 500 MG TABLET 1000 MG PO (09:35)
[2024-01-08] MEDS: SCOPOLAMINE 1 MG/3 DAY PATCH 1 PATCH TRANSDERMA (09:36)
--- NOTE | 2024-01-08 09:57 | P.NB_ITS ---
Nerve Block Nerve Block Time Seen by Provider: 09:50 Date Seen: 01/08/24 Type of block requested by surgeon for post-operative analgesia: TAP Side: bilateral Time out performed: Yes Verification of patient name: Yes Verification of date of : Yes Site marking: site marked Name of person performing procedure: Chris Continuous monitoring Was continuous monitoring of O2 sat, B/P, property assessment monitor, recorded every 15 minutes?: Yes Procedure Checklist: sterile prep, needles and gloves Ultrasound guided. Images saved: Yes Medications given in 5ml increments after negative aspiration: Marcaine %: 0.25 mL: 30 Needle gauge: 20 and Exparel mL: 10 Patient tolerated procedure well: Yes Additional comments: Needle noted between internal oblique and transversus abdominus. Local spread visualized Block Charges Block Charge (with Pro Fee): TAP Bilateral Use of Ultrasound Machine for Block: Yes- US Guidance/pain block
--- NOTE | 2024-01-08 09:57 | W.ANESCHARGE ---
Anesthesia Charges Start Date/Time Anesthesia Start Date: 01/08/24 Anesthesia Start Time: 09:39 Stop Date/Time Anesthesia Stop Date: 01/08/24 Anesthesia Stop Time: 11:40
--- NOTE | 2024-01-08 10:11 | SUR.OPER ---
PATIENT QUESTIONS ANSWERED SATISFACTORILY PREOPERATIVELY. PATIENT BROUGHT TO OR #4 PER CART. Patient positioned supine on OR #4 bed. The perioperative team supported arms bilaterally on arm boards. Final approval of positioning by surgeon.
--- NOTE | 2024-01-08 11:40 | P.GSOP_ITS ---
Operative Note Date of procedure: 01/08/24 Pre-op diagnosis: Small bowel obstruction Post-op diagnosis: Same Type of Procedure: Exploratory laparotomy Indications: Patient is a 48-year-old female who presented to the emergency department with small-bowel obstruction and questionable area of intussusception. Risks and benefits of operative intervention were discussed at length with the patient. Risks included but was not limited to: Bleeding, infection, risk of damage to surrounding structures, possible need for additional procedures and postoperative complications such as pneumonia, pulmonary emboli or MA. All questions and concerns were addressed with the patient agreeing to proceed. Procedure Description: After discussing the risks and benefits of the procedure, the patient signed informed consent.? The operative site was marked and the patient was brought to the operating room and placed on the operating table in supine position.? Care was taken to pad the patient's pressure points.?? The patient was then intubated by anesthesia.??The NG tube was placed to low intermittent suction throughout the case. Tap blocks were performed bilaterally by anesthesia. The operative site was then prepped and draped in the usual sterile fashion.? A time-out was then performed. A scalpel was used to incise a midline incision around the umbilicus. Dissection was carried through subcutaneous tissues with cautery down to fascia. The fascia was incised with electrocautery. Pickups were used to lift up the peritoneum, which was sharply incised to enter the abdomen. Upon entering the abdomen evidence of dilated small bowel and a copious amount reactive serous fluid. A medium Brayan wound retractor was placed into the incision. The small bowel was meticulously evaluated and run proximally to the ligament of treitz with no evidence of mass or transition point. It was then run distally towards the terminal ileum. As I approached the distal ileum evidence of twisting of the small bowel mesentery with the lateral attachments of the cecum. This did cause malperfusion and dilation of approximately 50 cm distal ileum. The mesentery was untwisted with return of perfusion. No obvious areas of necrosis or scarring requiring resection. There was laxity to the lateral attachments of the cecum, but no obvious defect identified. The appendix was visualized and appeared healthy. The colon was healthy in appearance and visualized on the right side, transverse, left-sided and sigmoid. The right ovary was visualized and within normal limits. Approximately 500 mL of reactive fluid was within the abdomen. A sample of this was sent for cytology with remainder suctioned. The small bowel was placed back into the abdomen. The stomach was palpated with NG tube in adequate position. The fascia was closed with 2 running looped 0 Prolene suture. Subcutaneous tiss ue was brought together with interrupted 3-0 Vicryl and skin brought together with a running 4-0 Monocryl stitch. Sterile dressings were then applied. ? The patient was then woken and transported to the recovery area in stable condition. ? The patient tolerated the procedure well. Findings: Mesenteric twisting of small bowel around cecum. Evidence of floppy cecum, no obvious mesenteric defect identified. Anesthesia: [facility] Surgeon: Ayaka Horne MD Estimated blood loss (mL): 1 Condition: stable Disposition: PACU
--- NOTE | 2024-01-08 11:42 | W.ANESCHARGE ---
Anesthesia Charges Start Date/Time Anesthesia Start Date: 01/08/24 Anesthesia Start Time: 09:39 Stop Date/Time Anesthesia Stop Date: 01/08/24 Anesthesia Stop Time: 11:40
[2024-01-08] MEDS: MEPERIDINE 25 MG/ML INJ 12.5 MG IVP (11:49)
[2024-01-08] MEDS: LACTATED RINGERS 1000 ML 1,000 ML 30 ML IV (14:04)
[2024-01-08] MEDS: KETOROLAC 15 MG/ML inj IVP ×2 (15:55→22:07)
--- NOTE | 2024-01-08 19:52 | PC.NURSE ---
End of Shift: The patient is pleasant and cooperative. Fatigued throughout the day due to minimal sleep last night. Per Dr Horne surgery was preformed this morning. NG tube to LIS after returned from surgery 100cc of green stomach contents. The patient had not voided since 900. DR Horne was called and orders to straight cath were obtained (450cc out). The patient tolerated this well. Medial abdominal incision with gauze and tape CDI no drainage present. The patient reports gas pain in her stomach and feels bloated. Toradol was given 1x. Ice pack was offered but the patient did not want one. Call light within reach. Remains NPO... per Dr Horne can have 1/2 c ice chips q8. and the patients mom visited throughout the day. I educated her on incentive spirometry and SCD to prevent blood clots. Zelad WELDON BSN
[2024-01-09 03:50] VITALS: BP 120/72; PULSE 98; RESP 18; TEMP 37.2; O2SAT 94
[2024-01-09] MEDS: KETOROLAC 15 MG/ML inj IVP ×4 (04:19→22:37)
[2024-01-09] MEDS: LACTATED RINGERS 1000 ML 1,000 ML 30 ML IV (04:43)
[2024-01-09 08:00] VITALS: BP 117/68; PULSE 91; RESP 18; TEMP 37; O2SAT 96
--- NOTE | 2024-01-09 08:48 | PC.NURSE ---
Patient pleasant, alert and oriented. Dressing to midline abdomen C,D&I. Given PRN Ketorolac for pain rated 5/10 in abdomen and back. Unable to void on own when attempted. Straight cathed at 0445. 500mL output of clear ashok urine.?
[2024-01-09] MEDS: ACETAMINOPHEN 325 MG TABLET 650 MG PO ×3 (09:00→21:06)
[2024-01-09 12:00] VITALS: BP 117/68; PULSE 84; RESP 18; TEMP 36.7; O2SAT 97
--- NOTE | 2024-01-09 14:04 | P.GSPN_ITS ---
Subjective Subjective Date Seen: 01/09/24 Interval history: Patient is doing well this morning. She did pass some gas, no bowel movement. Her NG tube was clamped on morning with patient reporting no nausea or vomiting. She is feeling some appetite and would like to try juice. Her abdomen feels bloated to her, no significant tenderness. She has been up walking around. Since surgery she has had difficulty urinating and had to be straight cathed 2 times overnight and once this morning. She was able to void about 50 mL after the last time. Exam Narrative: Exam Narrative: General: Alert and oriented, nontoxic in appearance HEENT: Small amount of bile tinged output from NG tube Abdomen: Dressings in place clean/dry/intact. Abdomen is appropriately tender over incision sites, mild distention with no guarding or rebound. Const: Vital Signs, click to edit/add: Vital Signs - 24 hr 01/08/24 14:15 01/08/24 15:04 01/08/24 16:00 Temperature 99.1 F 99.3 F 99.3 F Pulse Rate [Right Pulse Oximeter] 75 75 80 Respiratory Rate 16 16 16 Blood Pressure [Ri ght Arm] 92/61 95/60 96/59 L Pulse Oximetry 98 100 100 Oxygen Delivery Me thod Room Air Room Air Room Air 01/08/24 17:00 01/08/24 18:00 01/08/24 20:00 Temperature 99.7 F H 99.6 F Pulse Rate [Right Pulse Oximeter] 85 80 80 Respiratory Rate 16 18 18 Blood Pressure [Ri ght Arm] 97/49 L 101/64 114/65 Pulse Oximetry 97 98 98 Oxygen Delivery Me thod Room Air Room Air Room Air 01/08/24 22:53 01/09/24 03:50 Temperature 99.6 F 99.0 F Pulse Rate [Right Pulse Oximeter] 92 98 Respiratory Rate 18 18 Blood Pressure [Ri ght Arm] 106/68 120/72 Pulse Oximetry 98 94 Oxygen Delivery Me thod Room Air Room Air Progress Note:A&P Assessment and plan (1) Small bowel obstruction: Status: Acute Assessment and Plan: Patient is postop day 1 exploratory laparotomy for small bowel obstruction. Evidence intraoperatively of twisting to the distal small bowel around the cecum causing a complete obstruction. The mesentery was able to be untwisted, with no resection needed. Minimal output from NG tube overnight and passing of gas this morning. Low- grade fever overnight, likely secondary to atelectasis with patient encouraged to use IS. Incision clean/dry/intact with abdomen appropriately tender postoperatively. -NG tube removed at bedside -Toradol, Tylenol, Dilaudid and [place] available for pain control p.r.n. -clear diet, patient encouraged to go slowly. Will re-evaluate tomorrow before considering advancing -encourage ambulation -SCDs and Lovenox for DVT prophylaxis
[2024-01-09 15:00] VITALS: BP 105/82; PULSE 76; RESP 16; TEMP 36.8; O2SAT 100
--- NOTE | 2024-01-09 15:53 | PC.NURSE ---
PATIENT'S NG CLAMPED THIS AM AND DENIED NAUSEA. NG DC'D LATE MORNING AND TOLERATING SMALL AMOUNT OF CLEAR LIQUIDS WITH NO C/O N/V. C/O ABDOMINAL DISTENTION AND PAIN THAT IS CONTROLLED WITH TORADOL AND TYLENOL. PATIENT REPORTS PASSING SMALL AMOUNT OF GAS. DRESSING TO ABDOMEN CDI. PATIENT DID REQUEST CATHETER THIS AM AFTER BEING UNABLE TO VOID AGAIN. DR. HELM OKAYED GORMAN PLACEMENT. AFTER GORMAN WAS PLACED, 300 OUT AND PATIENT REQUESTED FOR GORMAN TO BE DC'D IT WAS UNCOMFORTABLE. GORMAN DC'D. PATIENT WAS ABLE TO VOID TWICE THIS AFTERNOON WITHOUT DIFFICULTY. PATIENT AMBULATING IN HALLWAY.
[2024-01-09] MEDS: LACTATED RINGERS 1000 ML 1,000 ML 100 ML IV (16:02)
--- NOTE | 2024-01-09 18:50 | PC.NURSE ---
End of shift [id number]: Pt A&O, afebrile and VSS this shift. She is independent in her room. Pt is tolerating clear liquid diet with no c/o nausea. Reports having some abdominal pain r/t bloating & tenderness. PRN Toradol last given @ 1600. Voiding small amounts with some small bloody sediments. PIV in right FA infusing LR @ 100 mL/hr. Midline abdominal incision covered with gauze & tape C/D/I. Pt is currently on her menses; pads provided.
[2024-01-09 19:00] VITALS: BP 119/73; PULSE 68; RESP 18; TEMP 36.8; O2SAT 100
[2024-01-09] MEDS: SIMETHICONE 80 MG TAB.CHEW 160 MG PO (20:39)
[2024-01-09] MEDS: ENOXAPARIN 40 MG/0.4 ML INJ SUBCUT (20:47)
[2024-01-09 23:00] VITALS: BP 123/79; PULSE 70; PULSE 72; RESP 18; TEMP 36.8; O2SAT 100
[2024-01-10] VITALS (7 sets, daily range): BP systolic 115–145; BP diastolic 69–92; PULSE 59–73; RESP 18–20; TEMP 36.7–36.9; O2SAT 93–100
[2024-01-10] MEDS: LACTATED RINGERS 1000 ML 1,000 ML 100 ML IV (02:12)
[2024-01-10] MEDS: ACETAMINOPHEN 325 MG TABLET 650 MG PO ×2 (02:45→22:23)
[2024-01-10] MEDS: KETOROLAC 15 MG/ML inj IVP ×2 (04:44→10:57)
[2024-01-10] MEDS: ONDANSETRON 2 MG/ML inj IVP (04:53)
--- NOTE | 2024-01-10 07:34 | PC.NURSE ---
End of shift report: Pleasant and cooperative with cares. Patient reports increased bloating and gas, call placed to Dr. Horne and new orders for simethicone PRN. Patient reports moderate relief with medication. Abdomen is round, firm to the touch and tender. Bowel sounds active in upper quadrants and hypoactive in lower quadrants. Dressing to midline clean dry and intact. Reports of nausea x 1, zofran used with effective results.
--- NOTE | 2024-01-10 13:09 | PM.GSPN ---
Subjective Subjective Date Seen: 01/10/24 Interval history: Patient with 3 loose stools this morning and passing gas. Tolerated some egg whites for breakfast. Denies any nausea. Still feels like abdomen is bloated, but improved from yesterday. Feels like she has swelling in her lower legs. Denies any pain to legs. Abdominal pain improving, wants to avoid narcotics if possible. Has been voiding independently. Ambulating the hallways frequently. Exam Narrative: Exam Narrative: Gen: alert and oriented, non toxic Abdomen: mild distension, appropriate tenderness with no rebound or guarding. Steri strips in place over midline incision c/d/i. Ext: No significant edema or swelling of legs bilateral. Const: Vital Signs, click to edit/add: Vital Signs - 24 hr 01/09/24 15:00 01/09/24 15:00 01/09/24 19:00 Temperature 98.3 F 98.2 F Pulse Rate [Right Pulse Oximeter] 76 76 68 Respiratory Rate 16 16 18 Blood Pressure [Ri ght Arm] 105/82 119/73 Pulse Oximetry 100 100 Oxygen Delivery Me thod Room Air Room Air 01/09/24 23:00 01/09/24 23:00 01/10/24 03:00 Temperature 98.3 F 98.1 F Pulse Rate [Right Pulse Oximeter] 72 70 70 Respiratory Rate 18 18 18 Blood Pressure [Ri ght Arm] 123/79 118/76 Pulse Oximetry 100 96 Oxygen Delivery Me thod Room Air Room Air 01/10/24 07:00 01/10/24 07:00 01/10/24 11:00 Temperature 98.3 F 98.4 F Pulse Rate [Right Pulse Oximeter] 72 72 59 L Respiratory Rate 18 18 20 Blood Pressure [Ri ght Arm] 115/69 122/76 Pulse Oximetry 97 100 Oxygen Delivery Me thod Room Air Room Air Progress Note:A&P Assessment and plan (1) Small bowel obstruction: Status: Acute Assessment and Plan: Patient is postop day 2 exploratory laparotomy for small bowel obstruction. Evidence intraoperatively of twisting to the distal small bowel around the cecum causing a complete obstruction. The mesentery was able to be untwisted, with no resection needed. Return of bowel function. Diet advanced this morning and tolerating well. Wants to avoid narcotics, will switch to oral medications- is requesting po toradol. Ambulating without difficulty and now voiding independently. No significant edema appreciated on my exam, reassured patient that retention of fluid is normal following surgery. Anticipate discharge later today vs tomorrow morning.
--- NOTE | 2024-01-10 14:21 | PC.NURSE ---
End of Shift Note: Patient had her IV fluids saline locked today. she is up and ambulating and we have slowly adv her diet. Pain has been controlled with IV toradol. Dr. Horne was here to see her and if she is tolerating diet, pain controlled and ambulating she maybe able to discharge home. Patient is aware of this. Nursing is to call Dr. Horne if patient feels she if ready to discharge.
[2024-01-10] MEDS: KETOROLAC 10 MG TABLET PO (17:30)
--- NOTE | 2024-01-10 18:21 | PC.NURSE ---
End of Shift. pt has been very pleasant. abd pain 2-4/10 and she got po pain meds. SL is patent. she took a shower.she is eating, drinking and voiding. Nursing is to call Dr. Horne if patient feels she if ready to discharge. Abdomen is round, firm to the touch and tender. Bowel sounds active in upper quadrants and hypoactive in lower quadrants. Steri strips to midline clean dry and intact
[2024-01-10] MEDS: ENOXAPARIN 40 MG/0.4 ML INJ SUBCUT (20:42)
[2024-01-10] MEDS: SIMETHICONE 80 MG TAB.CHEW 160 MG PO (22:23)
[2024-01-11 03:00] VITALS: BP 125/71; PULSE 85; RESP 18; O2SAT 97
[2024-01-11] MEDS: ONDANSETRON 2 MG/ML inj IVP (03:37)
--- NOTE | 2024-01-11 06:47 | PC.NURSE ---
pleasant and cooperative. c/o gas pains, prn simethicone given, offered minimal relief. abd distended. pt reports belching and occasional nausea. pt stated she may have had too much with her first meal, pt is now advancing diet slowly. bowel tones hyperactive.
--- NOTE | 2024-01-11 08:59 | XR_ITS ---
Patient: HERB SALDIVAR Facility:?[facility] Patient ID:?[id number] Site Patient ID:?[id number]. Site :?[id number] Study:?XRay-Abdomen 1 view-01/11/2024 9:13:03 AM Ordering Physician:Carolyn Arreguin Final Report: Indication: Exploratory laparotomy Technique: Abdomen one view Comparison: 01/08/2024 Findings: Small stool. Gaseous distention of small bowel and colon. No organomegaly or mass effect. No unusual calcifications. Lung bases clear. Osseous structures normal. Impression: Nonobstructive bowel gas pattern. Mild gaseous distention of small bowel and colon may reflect a mild ileus. Dictated by Mary Marley MD @ 01/11/2024 9:21:04 AM Signed by:?Mary Marley MD @01/11/2024 9:21:04 AM (Electronic Signature)
[2024-01-11 09:00] VITALS: BP 115/78; PULSE 90; RESP 16; TEMP 36.7; O2SAT 97
[2024-01-11 11:05] VITALS: BP 125/77; PULSE 66; RESP 16; TEMP 36.8; O2SAT 100
--- NOTE | 2024-01-11 13:35 | P.DS_ITS ---
DS: Providers Provider Date Seen: 01/11/24 Date of admission: 01/08/24 06:24 Primary care physician: Ariadne Machado PA-C Admitting Clinician: Miladis Arreguin MD Attending Physician on discharge: Miladis Arreguin MD DS: Summary Hospital Course Hospital Course: Patient presented to the emergency department with abdominal pain and evidence of small-bowel obstruction and possible intussusception on CT imaging. She was taken to the operating room for exploratory laparotomy with evidence of internal twisting of small bowel around a floppy right cecum. The small bowel and its mesentery was placed back into anatomic position, with no need for resection. Her postop course was complicated by urinary retention, requiring straight catheterization x3. On postop day 2 she was able to void independently and patient had return of bowel function. On postop day 3 she noted some continued abdominal distension. An abdominal x-ray was obtained when reassuring for a nonobstructive bowel gas pattern. At the time of discharge the patient was tolerating a diet, ambulating without difficulty and pain well controlled on oral medication. She was discharged to home with plan for follow-up in 2 weeks. Time Spent with Patient Time attestation: Total time spent providing and/or coordinating discharge services: Exam Narrative: Exam Narrative: Gen: alert and oriented, NAD Abd: mild distension, soft, non tender with no guarding or rebound. Midline incision with steri strips in place. Const: Vital Signs, click to edit/add: Vital Signs - 24 hr 01/10/24 15:40 01/10/24 15:40 01/10/24 19:00 Temperature 98.5 F 98.1 F Pulse Rate [Right Pulse Oximeter] 73 73 67 Respiratory Rate 18 18 18 Blood Pressure [Ri ght Arm] 132/92 H 137/73 Pulse Oximetry 93 100 Oxygen Delivery Me thod Room Air Room Air 01/10/24 22:53 01/10/24 23:00 01/11/24 03:00 Temperature Pulse Rate [Right Pulse Oximeter] 65 85 Respiratory Rate 18 18 18 Blood Pressure [Ri ght Arm] 145/92 H 125/71 Pulse Oximetry 99 97 Oxygen Delivery Me thod Room Air Room Air 01/11/24 09:00 01/11/24 11:05 Temperature 98.0 F 98.3 F Pulse Rate [Right Pulse Oximeter] 90 66 Respiratory Rate 16 16 Blood Pressure [Ri ght Arm] 115/78 125/77 Pulse Oximetry 97 100 Oxygen Delivery Me thod Room Air Room Air Discharge Plan Discharge Disposition: Home, Self-Care Date of Admission: 01/08/24 06:24 Attending Provider on Discharge: Ayaka Horne Primary Care Provider: Ariadne Machado Condition: Improved Anticipated Discharge Date/Time: 01/10/24 18:00 Discharge Medications: New ondansetron 4 mg tablet,disintegrating 4 mg PO Q6H Qty: 20 0RF senna 8.6 mg capsule 8.6 mg PO DAILY PRN (Reason: constipation) Qty: 90 0RF ketorolac 10 mg tablet 10 mg PO TID 5 Days Qty: 15 0RF Continued multivitamin with iron 1 tab PO DAILY Discharge Orders: Discharge Order (Routine); Ordered 01/11/24 Ordered By: Ayaka Horne Patient Education: Ketorolac (By mouth), Ondansetron (By mouth), Senna (By mouth), Bowel Obstruction (DC) Additional Instructions: A prescription of stool softeners has been sent to the pharmacy. Stop if having greater than 2 stools per day. Follow-up with Dr. Horne in 2-3 weeks. Please call if you are experiencing severe pain, nausea, vomiting, difficulty urinating, fever or not had a bowel movement in 4 days after surgery. Activity Level: No strenuous activity Activity Detail: No lifting > 20 lbs for 6 weeks following surgery Discharge Diet: Regular Follow Up Appointments: Ayaka Horne MD [Staff Physician] - 01/23/24 3:15 pm ([facility] for follow-up.) Ariadne Machado PA-C [Primary Care Provider] - Forms: [employer] Info Instructions
--- NOTE | 2024-01-11 16:30 | PC.NURSE ---
Pt alert and oriented. Pt had complaints of intermittent cramping through out shift. Pt's incision site is dry and intact. Pt discharged home with .
== END 2024-01-11 13:45 | disposition home or self-care (01) | DRG 330 ==
LOC: ED 23:19 → MEDSURG 23:48
PROVIDERS: Admitting Provider Surgery; Emergency Provider Emergency Medicine; PCP Physician Assistant; Visit Provider Family Medicine
PROC: 0DS80ZZ Reposition Small Intestine, Open Approach (ICD-10-PCS; principal; 2024-01-08 09:30)
DX: K56.601 Complete intestinal obstruction, unspecified as to cause (principal); J98.11 Atelectasis; K56.1 Intussusception
CPT/HCPCS: 00790; 00840; 36415; 51702; 64488; 74018; 74177; 76942; 80048; 80076; 81001; 81025; 83605; 83690; 85025; 86140; 87086; 88112; 88305; 99284; 99285; A9270; C9290; J0330; J0665; J0690; J1100; J1630; J1650; J1885; J2175; J2405; J2704; J3010; J3475; J3490; J7030; J7120; Q9967